=== PATIENT | male | born 1970 | race African-American/Black ===

== ENCOUNTER 2016-12-08 18:53 | Emergency (ER) | payer MEDICAID ==
[~2016-12-08] VITALS: Ht 180.3 cm; Wt 170.0 kg
[2016-12-08] MEDS ORDERED: IBUPROFEN 600MG TABLET PO ONE (22:30)
[2016-12-08 22:57] VITALS: BP 165/83
== END 2016-12-08 23:04 | disposition home or self-care (01) ==
LOC: ER 19:56
DX: M54.2 Cervicalgia (principal); I10 Essential (primary) hypertension; E78.00 Pure hypercholesterolemia, unspecified; V43.62XA Car passenger injured in collision with other type car in traffic accident, initial encounter; Y93.89 Activity, other specified; Y92.488 Other paved roadways as the place of occurrence of the external cause
CPT/HCPCS: 70450; 72125; 99284

== ENCOUNTER 2016-12-09 12:16 | Emergency (ER) | payer MEDICAID ==
[~2016-12-09] VITALS: Ht 170.2 cm; Wt 181.8 kg
[2016-12-09 12:29] VITALS: BP 179/80
== END 2016-12-09 17:24 | disposition left against medical advice (07) ==
LOC: ER 16:41
DX: Z53.21 Procedure and treatment not carried out due to patient leaving prior to being seen by health care provider (principal); E78.00 Pure hypercholesterolemia, unspecified